=== PATIENT | male | born 1965 | race African-American/Black ===

== ENCOUNTER 2020-05-08 12:40 | Emergency (ER) | payer OTHER ==
[~2020-05-08] VITALS: Ht 177.8 cm; Wt 90.9 kg
[2020-05-08 12:48] VITALS: BP 175/105
[2020-05-08] MEDS ORDERED: NAPR220C15 PO (12:48)
[2020-05-08 13:24] LABS: EOSINOPHILS % (AUTO) 0.9 % (1.0-6.0); HEMATOCRIT 46.6 % (41-53); HEMOGLOBIN 15.2 g/dL (13.5-17.5); LYMPHOCYTES # (AUTO) 2.3 K/uL (1.0-4.8); LYMPHOCYTES % (AUTO) 52.1 % (22.0-44.0); MEAN CORPUSCULAR HEMOGLOBIN 28.4 pg (26.0-34.0); MEAN CORPUSCULAR HGB CONC 32.6 G/dL (31.0-37.0); MEAN CORPUSCULAR VOLUME 87 fL (80-100); MONOCYTES # (AUTO) 0.4 K/uL (0.1-1.0); MONOCYTES % (AUTO) 9.8 % (2.0-9.0); NEUTROPHILS # (AUTO) 1.6 K/uL (1.8-7.7); NEUTROPHILS % (AUTO) 36.2 % (40.0-70.0); PLATELET COUNT (AUTO) 225 K/uL (150-450); RED BLOOD CELL COUNT(AUTO) 5.34 MIL/uL (4.50-5.90); RED CELL DISTRIBUTION WIDTH 14.6 % (11.5-14.5)
[2020-05-08 13:54] LABS: ANION GAP 9 mmol/L (8-16); CARBON DIOXIDE 26 mmol/L (22-29); CHLORIDE 104 mmol/L (98-107); CREATININE 1.32 mg/dL (0.60-1.30); GLOMERULAR FILTR. RATE CALC > 60 mL/min (>60); GLUCOSE,RANDOM 117 mg/dL (70-110); POTASSIUM 3.9 mmol/L (3.5-5.1); SODIUM SERUM 139 mmol/L (136-145); UREA NITROGEN, BLOOD 12 mg/dL (7-18)
[2020-05-08 14:02] LABS: ALANINE AMINOTRANSFERASE 59 U/L (12-78); ALBUMIN 4.7 g/dL (3.4-5.0); ALKALINE PHOSPHATASE 75 U/L (46-116); ASPARTATE AMINOTRANSFERASE 36 U/L (15-37); BILIRUBIN,TOTAL 0.5 mg/dL (0.1-1.0); LIPASE 149 U/L (73-393); TOTAL PROTEIN, SERUM 8.2 g/dL (6.4-8.2)
[2020-05-08 18:28] LABS: APPEARANCE,URINE CLEAR (CLEAR); BILIRUBIN,URINE NEGATIVE (NEGATIVE); GLUCOSE, URINE (UA) NEGATIVE (NEGATIVE); KETONES,URINE NEGATIVE (NEGATIVE); LEUKOCYTE ESTERASE ,URINE NEGATIVE (NEGATIVE); NITRATE,URINE NEGATIVE (NEGATIVE); OCCULT BLOOD,URINE NEGATIVE (NEGATIVE); PROTEIN,URINE NEGATIVE (NEGATIVE)
== END 2020-05-08 18:07 | disposition home or self-care (01) ==
LOC: EMS 12:47
DX: K21.9 Gastro-esophageal reflux disease without esophagitis (principal); K29.70 Gastritis, unspecified, without bleeding; K76.0 Fatty (change of) liver, not elsewhere classified; R07.89 Other chest pain
CPT/HCPCS: 76700; 93005

== ENCOUNTER 2023-12-14 17:38 | Emergency (ER) | payer MEDICAID, OTHER ==
[~2023-12-14] VITALS: Ht 172.7 cm; Wt 95.5 kg
[~2023-12-14 17:38] MED LIST: NAPR220C15 PO
[2023-12-14] MEDS ORDERED: LISI10TA24 PO (18:02)
[2023-12-14] MEDS ORDERED: EMPA25TA3 PO (18:02)
[2023-12-14 18:05] VITALS: TEMP 98.3
[2023-12-14] MEDS ORDERED: AMOX-457 PO (19:50)
[2023-12-14 20:07] VITALS: BP 132/72; PULSE 64; RESP 18
== END 2023-12-14 20:34 | disposition home or self-care (01) ==
LOC: EMS 17:38
DX: H66.91 Otitis media, unspecified, right ear (principal); E11.9 Type 2 diabetes mellitus without complications; Z98.890 Other specified postprocedural states
CPT/HCPCS: 82962; 99283